=== PATIENT | female | born 2000 | race Hispanic/Latino ===

== ENCOUNTER 2023-11-03 18:34 | Emergency (ER) | payer BC ==
[~2023-11-03] VITALS: Ht 157.5 cm; Wt 65.8 kg
[2023-11-03 19:06] LABS: RAPID GROUP A STREP negative (NEGATIVE); SARS-CoV-2, RNA, NAAT NEGATIVE SARS CoV-2 (NEGATIVE)
[2023-11-03 19:15] LABS: INFLUENZA TYPE A Negative For Type A (NEGATIVE); INFLUENZA TYPE B Negative For Type B (NEGATIVE)
[2023-11-03 20:31] VITALS: BP 152/90; PULSE 92; RESP 19; TEMP 99; O2SAT 99
[2023-11-03 21:09] LABS: BASOPHILS # (AUTO) 0.04 K/uL (0.00-0.20); BASOPHILS % (AUTO) 0.3 % (0.0-5.0); HEMATOCRIT 44.9 % (36-48); IMMATURE GRANULOCYTE ABSOLUTE 0.11 K/uL (0-1); LYMPHOCYTES # (AUTO) 1.1 K/uL (1.0-4.8); LYMPHOCYTES % (AUTO) 8.3 % (21.0-51.0); MEAN CORPUSCULAR HEMOGLOBIN 25.7 pg (27.0-33.0); MEAN CORPUSCULAR HGB CONC 31.4 g/dL (32.0-36.0); MEAN CORPUSCULAR VOLUME 81.9 fL (79-99); MONOCYTES # (AUTO) 0.7 K/uL (0.1-1.0); NEUTROPHILS # (AUTO) 11.8 K/uL (1.8-7.7); NEUTROPHILS % (AUTO) 85.6 % (40.0-77.0); PLATELET COUNT (AUTO) 287 K/uL (130-400); RED BLOOD CELL COUNT(AUTO) 5.48 MIL/uL (4.00-5.50); RED CELL DISTRIBUTION WIDTH 14.2 % (11.0-15.5); WHITE BLOOD COUNT (AUTO) 13.8 K/uL (4.8-10.8)
[2023-11-03] MEDS: FAMOTIDINE 20MG VIAL IV ONE (21:16)
[2023-11-03] MEDS: 0.9%NACL 1000ML 1,000 ML IV ONE (21:16)
[2023-11-03] MEDS: ONDANSETRON 4MG INJ IVP ONE (21:16)
[2023-11-03 21:22] LABS: CREATININE 0.9 mg/dL (0.5-1.0); POTASSIUM 3.5 mmol/L (3.5-5.1)
[2023-11-03 21:26] LABS: ALBUMIN 3.8 g/dL (3.5-5.0); BILIRUBIN,TOTAL 0.7 mg/dL (0.2-1.0); TOTAL PROTEIN, SERUM 8.9 g/dL (6.0-8.3)
[2023-11-03 22:01] VITALS: TEMP 99
[2023-11-03] MEDS: acetaMINOPHEN 500 MG TABLET PO ONE (22:01)
[2023-11-03] MEDS ORDERED: METR-172 PO (22:07)
[2023-11-03] MEDS ORDERED: ONDA-243 PO (22:08)
[2023-11-03] MEDS ORDERED: FAMO-136 PO (22:08)
== END 2023-11-03 22:23 | disposition home or self-care (01) ==
LOC: EDH 18:34
DX: K52.9 Noninfective gastroenteritis and colitis, unspecified (principal); Z20.822 Contact with and (suspected) exposure to COVID-19; Z79.899 Other long term (current) drug therapy; Z98.890 Other specified postprocedural states
CPT/HCPCS: 99284; 96374; 71045; 87635; 96361; 96375; 80053; 84703; 83690; 85025; 87880; 87804 ×2; 83605; 36415; 84145; J3490; J7030; J2405